=== PATIENT | female | born 1950 | race Two or more races ===

== ENCOUNTER 2016-10-31 16:55 | Inpatient (IN) | payer MEDICARE, MEDICAID ==
[~2016-10-31] VITALS: Ht 157.5 cm; Wt 80.7 kg
--- NOTE | 2016-10-31 17:05 | NUR ---
PT BIBRA FROM [facility] TO ER BED 12. HERE FOR MEDICAL EVAL PRIOR TO GEROPSYCH ADMISSION. PT IS AAO X 1. ALREADY ON A HOLD FOR GD AND DTS. PLACED ON MONITOR. STABLE VITALS AWAITING MD LEVY.
--- NOTE | 2016-10-31 17:30 | NUR ---
DR BUNCH AT BEDSIDE FOR EVAL.
[2016-10-31 17:39] LABS: BASOPHILS # (AUTO) 0.1 /CMM (0.0-0.2); BASOPHILS % (AUTO) 1.2 % (0.0-2.0); EOSINOPHILS # (AUTO) 0.1 /CMM (0.0-0.7); EOSINOPHILS % (AUTO) 1.2 % (0.0-6.0); HEMATOCRIT 48 % (33-45); HEMOGLOBIN 16.2 g/dL (11.5-14.8); LYMPHOCYTES # (AUTO) 2.8 /CMM (0.8-4.8); LYMPHOCYTES % (AUTO) 39.1 % (20.0-44.0); MEAN CORPUSCULAR HEMOGLOBIN 31 PG (26.0-33.0); MEAN CORPUSCULAR HGB CONC 34 g/dl (31.0-36.0); MEAN CORPUSCULAR VOLUME 93 fL (82-100); MONOCYTES # (AUTO) 0.5 /CMM (0.1-1.30); MONOCYTES % (AUTO) 7.2 % (2.0-12.0); NEUTROPHILS # (AUTO) 3.7 /CMM (1.8-8.9); NEUTROPHILS % (AUTO) 51.3 % (43.0-81.0); PLATELET COUNT (AUTO) 247 /CMM (150-450); RDW COEFFICIENT OF VARIATION 12.6 (11.5-15.0); RED BLOOD CELL COUNT(AUTO) 5.18 MIL/uL (4.0-5.2); WHITE BLOOD COUNT (AUTO) 7.2 K/uL (4.3-11.0)
--- NOTE | 2016-10-31 17:50 | NUR ---
PT UNABLE TO PROVIDE URINE SAMPLE AT THIS TIME.
[2016-10-31 18:01] LABS: CALCIUM, SERUM 9.6 mg/dL (8.5-10.1); CARBON DIOXIDE 28 mmol/L (21-32); CHLORIDE 102 mmol/L (98-107); CREATININE 1.3 mg/dL (0.6-1.3); GLUCOSE 168 mg/dL (74-106); POTASSIUM 4.3 mmol/L (3.5-5.1); SODIUM SERUM 139 mmol/L (136-145); UREA NITROGEN, BLOOD 32 mg/dL (7-18)
[2016-10-31 18:06] LABS: ALANINE AMINOTRANSFERASE 37 U/L (12-78); ALBUMIN 4.1 g/dL (3.4-5.0); ALCOHOL, BLOOD < 3 mg/dL (0-0); ALKALINE PHOSPHATASE 131 U/L (46-116); ASPARTATE AMINOTRANSFERASE 16 U/L (15-37); BILIRUBIN,DIRECT 0.1 mg/dL (0.0-0.2); BILIRUBIN,TOTAL 0.4 mg/dL (0.2-1.0); TOTAL PROTEIN, SERUM 7.9 g/dL (6.4-8.2)
[2016-10-31 18:08] LABS: ACETAMINOPHEN < 10 ug/ml (10-30); SALICYLATE 0.9 mg/dL (2.8-20.0)
[2016-10-31] MEDS ORDERED: LISI10TA5 PO (19:07)
[2016-10-31] MEDS ORDERED: HYDR25TA4 PO (19:07)
[2016-10-31] MEDS ORDERED: QUET200T PO (19:07)
[2016-10-31 19:20] LABS: APPEARANCE,URINE Clear (CLEAR); BILIRUBIN,URINE Negative (NEGATIVE); BLOOD, URINE Negative Ery/uL (NEGATIVE); COLOR,URINE Yellow (YELLOW); KETONES,URINE Negative (NEGATIVE); LEUKOCYTE ESTERASE ,URINE Trace (NEGATIVE); NITRITE, URINE Negative (NEGATIVE); PH,URINE 5.5 (5.0-8.0); PROTEIN,URINE Negative (NEGATIVE); UGLUCOSE Negative (NEGATIVE); UROBILINOGEN,URINE 0.2 EU/dL (0.2)
--- NOTE | 2016-10-31 19:27 | NUR ---
REPORT GIVEN TO GUNNER. PT AWAITNG TRANSFER TO FLOOR.
--- NOTE | 2016-10-31 19:30 | NUR ---
ADMITTED AN 66 Y/O FEMALE FROM [facility], ON 5250 HOLD, BASED ON HOLD, PATIENT IS CONFUSED, WONDERING INTO OTHER HOUSE AND NOT ABLE TO PROVIDE A PLAN FOR DISCHARGE. PATIENT ARRIVED VIA WHEELCHAIR AND ASSISTED BY ER STAFF. PATIENT ADMITTING DX. PSYCHOSIS AND MEDICAL DX. OF [facility]. UPON FACE TO FACE EVALUATION, PATIENT APPEARED ALERT AND ORIENTED X 1, VERBALLY RESPONSIVE, CONFUSED, DISORIENTED AND DISORGANIZED. PATIENT HAS NO SOB, NO ACUTE DISTRESS, BREATHING EVEN AND UNLABORED, NO S/S OF PAIN AND DISCOMFORT. BODY CHECK DONE. PICTURE DONE. PATIENT UNABLE TO SIGN CONSENT. NOTIFIED DR. ALARCON OF THE ADMISSION. PATIENT ATE HER SNACKS AND FINISHED SHOWER. NOTIFIED DAUGHTER BRENTON DAVIS OF THE ADMISSION. BELONGINGS INSPECTED AND PLACED ON CONTRABAND KEPT CLEAN, DRY AND COMFORTABLE. WILL CONTINUE TO MONITOR [id number] FR SAFETY.
[2016-10-31 19:39] LABS: BACTERIA,URINE Rare /HPF (None Seen); RBC,URINE NONE SEEN /HPF (0-2); SQUAMOUS EPITHELIAL CELL,UR Few /HPF (None Seen)
[2016-10-31] MEDS ORDERED: CLONIDINE HCL 0.1 MG TABLET PO PRN (20:00)
[2016-10-31] MEDS ORDERED: SERT50TA12 (20:11)
[2016-10-31 20:26] VITALS: BP 113/75
[2016-10-31 21:04] VITALS: BP 113/75
[2016-10-31] MEDS ORDERED: clonazePAM 0.5 MG TABLET PO PRN (21:30)
[2016-10-31] MEDS ORDERED: MAG HYDROX/AL HYDROX/SIMETH 30 ML UDC PO PRN (21:30)
[2016-10-31] MEDS ORDERED: MAGNESIUM HYDROXIDE 30 ML UDC PO PRN (21:30)
[2016-10-31] MEDS ORDERED: ACETAMINOPHEN 325 MG TABLET PO PRN (21:30)
[2016-11-01 08:00] VITALS: BP 114/62
[2016-11-01 08:08] LABS: CREATININE 0.9 mg/dL (0.6-1.3)
[2016-11-01] MEDS: HYDROCHLOROTHIAZIDE 25 MG TABLET PO SCH (08:44)
[2016-11-01] MEDS: LISINOPRIL (10MG) 10 MG TABLET PO SCH (08:44)
--- NOTE | 2016-11-01 09:10 | NUR ---
MRSA OF [facility] NARES TAKEN, CALLED LAB FOR PATROL SERGEANT.
--- NOTE | 2016-11-01 15:17 | NUR ---
Initial discharge plan: Pt. is a resident at [address] [place] [id number] and per daughter, Jo [phone] she is unable to return as there is no one to take care of her 02/10. Pt. needs care and Jo would like her placed in either dementia nursing facility or dementia assisted living. SW will follow up with MD and will help arrange for a safe and proper discharge.
[2016-11-01 16:14] VITALS: BP 140/100
[2016-11-01] MEDS: SERTRALINE HCL 50 MG TABLET PO SCH (17:23)
[2016-11-01] MEDS: ARIPIPRAZOLE 5 MG TABLET PO SCH (17:23)
[2016-11-01 20:17] VITALS: BP 160/82
[2016-11-01] MEDS ORDERED: DEXTROSE 50%-WATER 50 ML DISP.SYRIN IV PRN (20:30)
[2016-11-01] MEDS: ATORVASTATIN 40 MG TABLET PO SCH (21:19)
[2016-11-01] MEDS: INSULIN REGULAR, HUMAN 100 UNIT/ML 3 ML VIAL SQ PRN (21:41)
[2016-11-01] MEDS: BLOOD SUGAR DIAGNOSTIC 1 EACH STRIP IN SCH (21:42)
[2016-11-01] MEDS: TEMAZEPAM 7.5 MG CAPSULE PO PRN (21:46)
[2016-11-01 22:00] VITALS: BP 133/77
--- NOTE | 2016-11-02 06:28 | NUR ---
RN GPS NOTES PATIENT RESTING HER BED, NO ACUTE DISTRESS NOTED ,NO CHANGES IN STATUS. ALL NEEDS ATTENDED ANTICIPATED . WILL ENDORSE TO NEXT SHIFT FOR CONTINUITY CARE
[2016-11-02 06:46] LABS: THYROID STIMULATING HORMONE 3.19 uIU/mL (0.358-3.74)
[2016-11-02] MEDS: BLOOD SUGAR DIAGNOSTIC 1 EACH STRIP IN SCH ×4 (07:35→21:20)
[2016-11-02] MEDS: INSULIN REGULAR, HUMAN 100 UNIT/ML 3 ML VIAL SQ PRN ×4 (07:37→21:22)
[2016-11-02 08:00] VITALS: BP 150/99
[2016-11-02] MEDS: HYDROCHLOROTHIAZIDE 25 MG TABLET PO SCH (08:36)
[2016-11-02] MEDS: SERTRALINE HCL 50 MG TABLET PO SCH (08:36)
[2016-11-02] MEDS: LISINOPRIL (10MG) 10 MG TABLET PO SCH (08:36)
[2016-11-02] MEDS: ARIPIPRAZOLE 5 MG TABLET PO SCH (08:36)
[2016-11-02 15:47] VITALS: BP 150/92
--- NOTE | 2016-11-02 16:46 | NUR ---
Had a visit from [facility] mental health social worker Yamini Santillan [phone] who was following up on the case. LACEY notified Yamini that pt. will be discharged to a dementia facility upon discharge. Yamini wants to be notified.
[2016-11-02 20:00] VITALS: BP 152/99
[2016-11-02] MEDS: ATORVASTATIN 40 MG TABLET PO SCH (21:20)
[2016-11-02] MEDS: TEMAZEPAM 7.5 MG CAPSULE PO PRN (22:06)
--- NOTE | 2016-11-03 06:39 | NUR ---
RN GPS NOTES PATIENT RESTING HER BED, NO ACUTE DISTRESS NOTED ,NO CHANGES IN STATUS. ALL NEEDS ATTENDED ANTICIPATED . DENIES SI/HI AT THIS TIME, WILL ENDORSE TO NEXT SHIFT FOR CONTINUITY CARE
[2016-11-03 08:00] VITALS: BP 170/95
[2016-11-03] MEDS: BLOOD SUGAR DIAGNOSTIC 1 EACH STRIP IN SCH ×4 (08:01→21:56)
[2016-11-03] MEDS: INSULIN REGULAR, HUMAN 100 UNIT/ML 3 ML VIAL SQ PRN ×4 (08:03→21:58)
[2016-11-03] MEDS: SERTRALINE HCL 50 MG TABLET PO SCH (08:27)
[2016-11-03] MEDS: ARIPIPRAZOLE 5 MG TABLET PO SCH (08:27)
[2016-11-03] MEDS: HYDROCHLOROTHIAZIDE 25 MG TABLET PO SCH (08:27)
[2016-11-03] MEDS: LISINOPRIL (10MG) 10 MG TABLET PO SCH (08:27)
--- NOTE | 2016-11-03 10:51 | NUR ---
SW met with pt's other daughter, Ida [phone] who claims to have the power of tax attorney over the patient. SW asked Ida to fax the paperwork and that unless the paperwork is provided, outreach and education social worker will not be able to honor it. Pt. mentioned that the entire family does not really speak to her as she has been doing most of the work and has been wanting to take care of her mother unlike other siblings that wanted to put her in a facility. There seem to be some disagreements between family members; hence, SW asked to have paperwork for DPOA to be able to just speak with the person responsible for making decisions.
[2016-11-03] MEDS ORDERED: SITAGLIPTIN PHOSPHATE 50 MG TABLET PO SCH (15:30)
[2016-11-03 16:02] VITALS: BP 145/99
[2016-11-03] MEDS: LINAGLIPTIN 5 MG TABLET PO SCH (16:11)
[2016-11-03] MEDS: METFORMIN 500 MG TABLET PO SCH (16:11)
--- NOTE | 2016-11-03 16:28 | NUR ---
LACEY requested DPOA paperwork from daughter, Ida [phone] who emailed the form. The form has different dates on which makes it invalid. It has been notarized in 2000; however, the signing date is 2001.
--- NOTE | 2016-11-03 19:30 | NUR ---
GPS RN NOTE, RECEIVED PATIENT AWAKE AND IN BED, NO S/S OR COMPLAINTS OF PAIN AT THIS TIME. PATIENT IS DISPLAYING NO S/S OF APPARENT DISTRESS AT THIS TIME. PATIENT BREATHING IS UNLABORED WITH EQUAL RISE AND FALL OF THE CHEST. PATIENT IS ALERT AND ORIENTED X 2 ON ROOM AIR WITH A SPO2 95%. PATIENT COMPLAINT WITH MEDICATION, ANXIOUS, COOPERATIVE, GUARDED, RESPONDING TO INTERNAL STIMULI, SUSPICIOUS, AND NEEDS REORIENTATION. PATIENT DENIES SUICIDE AND HOMICIDAL IDEATIONS AT THIS TIME. PATIENT ASSISTED WITH TURNING AND REPOSITIONING Q2HR AND PRN FOR COMFORT AND CIRCULATION. PATIENT HAS NO NEEDS AT THIS TIME. PATIENT EDUCATED ON THE USE OF THE CALL MORRIS. PATIENT BED SIDE RAILS UP X2 FOR SAFETY, BED IS LOCKED AND LOW WILL CONTINUE TO MONITOR AND MAINTAIN SAFETY.
--- NOTE | 2016-11-03 19:30 | NUR ---
GPS RN NOTE, RECEIVED PATIENT AWAKE AND IN BED, NO S/S OR COMPLAINTS OF PAIN AT THIS TIME. PATIENT IS DISPLAYING NO S/S OF APPARENT DISTRESS AT THIS TIME. PATIENT BREATHING IS UNLABORED WITH EQUAL RISE AND FALL OF THE CHEST. PATIENT IS ALERT AND ORIENTED X 2 ON ROOM AIR WITH A SPO2 97%. PATIENT SELECTIVE WITH MEDICATION, ANXIOUS, COOPERATIVE, GUARDED, SUSPICIOUS, AND NEEDS REORIENTATION. PATIENT DENIES SUICIDE AND HOMICIDAL IDEATIONS AT THIS TIME. PATIENT ASSISTED WITH TURNING AND REPOSITIONING Q2HR AND PRN FOR COMFORT AND CIRCULATION. PATIENT HAS NO NEEDS AT THIS TIME. PATIENT EDUCATED ON THE USE OF THE CALL MORRIS. PATIENT BED SIDE RAILS UP X2 FOR SAFETY, BED IS LOCKED AND LOW WILL CONTINUE TO MONITOR AND MAINTAIN SAFETY.
[2016-11-03 20:00] VITALS: BP 143/93
--- NOTE | 2016-11-03 21:56 | NUR ---
GPS RN NOTE, PERFORMED ACCU CHECK ON PATIENT WITH A BLOOD SUGAR RESULT OF 180. GAVE 3 UNITS OF REGULAR INSULIN PER SLIDING SCALE. WILL CONTINUE TO MONITOR THIS PATIENT.
[2016-11-03] MEDS: ATORVASTATIN 40 MG TABLET PO SCH (21:59)
[2016-11-03] MEDS: TEMAZEPAM 7.5 MG CAPSULE PO PRN (22:03)
--- NOTE | 2016-11-03 22:03 | NUR ---
GPS RN NOTE, PATIENT HAS A COMPLAINT OF NOT BEING ABLE TO SLEEP AND WOULD LIKE A SLEEPING AID AT THIS TIME. PATIENT VITAL SIGNS ARE STABLE. GAVE RESTORIL 7.5MG PO HS ORDERED. WILL REASSESS FOR INSOMNIA AND I WILL CONTINUE TO MONITOR THIS PATIENT.
[2016-11-04] MEDS: BLOOD SUGAR DIAGNOSTIC 1 EACH STRIP IN SCH ×4 (07:24→21:36)
[2016-11-04] MEDS: INSULIN REGULAR, HUMAN 100 UNIT/ML 3 ML VIAL SQ PRN ×3 (07:26→17:40)
[2016-11-04 08:00] VITALS: BP 148/94
[2016-11-04] MEDS: LISINOPRIL (10MG) 10 MG TABLET PO SCH (08:27)
[2016-11-04] MEDS: HYDROCHLOROTHIAZIDE 25 MG TABLET PO SCH (08:27)
[2016-11-04] MEDS: METFORMIN 500 MG TABLET PO SCH ×2 (08:27→17:15)
[2016-11-04] MEDS: SERTRALINE HCL 50 MG TABLET PO SCH (08:27)
[2016-11-04] MEDS: LINAGLIPTIN 5 MG TABLET PO SCH (08:27)
[2016-11-04] MEDS: ARIPIPRAZOLE 5 MG TABLET PO SCH (09:06)
[2016-11-04 16:00] VITALS: BP 131/100
--- NOTE | 2016-11-04 17:15 | NUR ---
ADMINISTERED KLONOPIN 0.5 MG PO PRN FOR ANXIETY PER PATIENT REQUEST, V/S TAKEN BP -131/100, P-99, CONTINUED MONITORING.
[2016-11-04 20:00] VITALS: BP 129/91
[2016-11-04] MEDS: ATORVASTATIN 40 MG TABLET PO SCH (21:36)
[2016-11-04] MEDS: TEMAZEPAM 7.5 MG CAPSULE PO PRN (22:28)
--- NOTE | 2016-11-05 06:46 | NUR ---
RN GPS NOTES PATIENT RESTING HER BED, NO ACUTE DISTRESS NOTED ,NO CHANGES IN STATUS. ALL NEEDS ATTENDED ANTICIPATED . DENIES SI/HI AT THIS TIME, PT. COMPLY WITH DUE MEDS ,WILL ENDORSE TO NEXT SHIFT FOR CONTINUITY CARE
[2016-11-05] MEDS: BLOOD SUGAR DIAGNOSTIC 1 EACH STRIP IN SCH ×4 (07:33→21:49)
[2016-11-05 07:57] VITALS: BP 153/88
[2016-11-05] MEDS: INSULIN REGULAR, HUMAN 100 UNIT/ML 3 ML VIAL SQ PRN ×3 (08:00→21:51)
[2016-11-05] MEDS: HYDROCHLOROTHIAZIDE 25 MG TABLET PO SCH (08:02)
[2016-11-05] MEDS: METFORMIN 500 MG TABLET PO SCH ×2 (08:02→17:53)
[2016-11-05] MEDS: SERTRALINE HCL 50 MG TABLET PO SCH (08:03)
[2016-11-05] MEDS: LISINOPRIL (10MG) 10 MG TABLET PO SCH (08:03)
[2016-11-05] MEDS: LINAGLIPTIN 5 MG TABLET PO SCH (08:03)
[2016-11-05] MEDS: ARIPIPRAZOLE 5 MG TABLET PO SCH (08:15)
[2016-11-05 15:50] VITALS: BP 136/97
--- NOTE | 2016-11-05 19:43 | NUR ---
GPS RN NOTE: V/S HJ=197/91 P=98 R=18 T=97.9 NO SOB, NO ACUTE DISTRESS, BREATHING EVEN AND UNLABORED, NO S/S OF PAIN AND DISCOMFORT, CATAPRES GIVEN ORDERED, WILL CONTINUE TO MONITOR.
[2016-11-05 20:16] VITALS: BP 166/91
--- NOTE | 2016-11-05 20:43 | NUR ---
GPS RN NOTE: PATIENT V/S GE=514/78 P=89 R=20 T=97.8 PATIENT STABLE, CATAPRES EFFECTIVE, WILL CONTINUE TO MONITOR
[2016-11-05] MEDS: ATORVASTATIN 40 MG TABLET PO SCH (21:03)
[2016-11-06] MEDS: BLOOD SUGAR DIAGNOSTIC 1 EACH STRIP IN SCH ×4 (07:24→21:35)
[2016-11-06 08:00] VITALS: BP 139/93
[2016-11-06] MEDS: HYDROCHLOROTHIAZIDE 25 MG TABLET PO SCH (08:27)
[2016-11-06] MEDS: LINAGLIPTIN 5 MG TABLET PO SCH (08:27)
[2016-11-06] MEDS: SERTRALINE HCL 50 MG TABLET PO SCH (08:27)
[2016-11-06] MEDS: METFORMIN 500 MG TABLET PO SCH ×2 (08:27→16:32)
[2016-11-06] MEDS: LISINOPRIL (10MG) 10 MG TABLET PO SCH (08:27)
[2016-11-06] MEDS: ARIPIPRAZOLE 5 MG TABLET PO SCH (08:28)
[2016-11-06] MEDS: INSULIN REGULAR, HUMAN 100 UNIT/ML 3 ML VIAL SQ PRN ×4 (08:34→21:37)
[2016-11-06 16:00] VITALS: BP 159/78
--- NOTE | 2016-11-06 16:29 | NUR ---
LACEY spoke with pt's daughter, Ida [phone] explaining that [facility] paperwork cannot be honored. Ida said it doesn't matter now as she wants her mother to return to live with her father (pt's ex-). SW asked to have contact with him to confirm that it is okay. SW will also speak with the patient to make sure that pt. is also comfortable with that discharge plan. Ida states that she wants her mom to return back to her living situation until they find a more permanent placement, as they do not want to wick and they want to have more time to look for an appropriate facilities. LACEY suggested for pt. to be placed in a SNF first while family is looking for a terminal supervisor facility, but Ida disagrees. LACEY will follow up
--- NOTE | 2016-11-06 19:30 | NUR ---
GPS RN NOTE, RECEIVED PATIENT AWAKE AND IN BED, NO S/S OR COMPLAINTS OF PAIN AT THIS TIME. PATIENT IS DISPLAYING NO S/S OF APPARENT DISTRESS AT THIS TIME. PATIENT BREATHING IS UNLABORED WITH EQUAL RISE AND FALL OF THE CHEST. PATIENT IS ALERT AND ORIENTED X 2 ON ROOM AIR WITH A SPO2 97%. PATIENT COMPLIANT WITH MEDICATION, ANXIOUS, COOPERATIVE, GUARDED, SUSPICIOUS, AND NEEDS REORIENTATION. PATIENT DENIES SUICIDE AND HOMICIDAL IDEATIONS AT THIS TIME. PATIENT ASSISTED WITH TURNING AND REPOSITIONING Q2HR AND PRN FOR COMFORT AND CIRCULATION. PATIENT HAS NO NEEDS AT THIS TIME. PATIENT EDUCATED ON THE USE OF THE CALL MORRIS. PATIENT BED SIDE RAILS UP X2 FOR SAFETY, BED IS LOCKED AND LOW WILL CONTINUE TO MONITOR AND MAINTAIN SAFETY.
[2016-11-06 19:38] VITALS: BP 143/85
--- NOTE | 2016-11-06 21:35 | NUR ---
GPS RN NOTE, PERFORMED ACCU CHECK ON PATIENT WITH A BLOOD SUGAR RESULT OF 167. GAVE 3 UNITS OF REGULAR INSULIN PER SLIDING SCALE. WILL CONTINUE TO MONITOR THIS PATIENT.
[2016-11-06] MEDS: ATORVASTATIN 40 MG TABLET PO SCH (21:38)
[2016-11-07 08:00] VITALS: BP 141/92
[2016-11-07] MEDS: LISINOPRIL (10MG) 10 MG TABLET PO SCH (08:01)
[2016-11-07] MEDS: BLOOD SUGAR DIAGNOSTIC 1 EACH STRIP IN SCH ×4 (08:01→21:48)
[2016-11-07] MEDS: SERTRALINE HCL 50 MG TABLET PO SCH (08:02)
[2016-11-07] MEDS: LINAGLIPTIN 5 MG TABLET PO SCH (08:02)
[2016-11-07] MEDS: ARIPIPRAZOLE 5 MG TABLET PO SCH (08:02)
[2016-11-07] MEDS: METFORMIN 500 MG TABLET PO SCH ×2 (08:02→17:01)
[2016-11-07] MEDS: HYDROCHLOROTHIAZIDE 25 MG TABLET PO SCH (08:02)
[2016-11-07] MEDS: INSULIN REGULAR, HUMAN 100 UNIT/ML 3 ML VIAL SQ PRN ×3 (08:08→17:05)
[2016-11-07 16:00] VITALS: BP 142/92
[2016-11-07 20:54] VITALS: BP 133/83
[2016-11-07] MEDS: ATORVASTATIN 40 MG TABLET PO SCH (21:33)
--- NOTE | 2016-11-07 21:48 | NUR ---
GPS/RN NOTE: ACCUCHECK 127 MG/DL, NO INSULIN DUE AT THIS TIME.
[2016-11-08 08:00] VITALS: BP 144/103
[2016-11-08] MEDS: SERTRALINE HCL 50 MG TABLET PO SCH (08:17)
[2016-11-08] MEDS: METFORMIN 500 MG TABLET PO SCH ×2 (08:18→17:00)
[2016-11-08] MEDS: LINAGLIPTIN 5 MG TABLET PO SCH (08:18)
[2016-11-08] MEDS: ARIPIPRAZOLE 5 MG TABLET PO SCH (08:18)
[2016-11-08] MEDS: LISINOPRIL (10MG) 10 MG TABLET PO SCH (08:18)
[2016-11-08] MEDS: HYDROCHLOROTHIAZIDE 25 MG TABLET PO SCH (08:21)
[2016-11-08] MEDS: BLOOD SUGAR DIAGNOSTIC 1 EACH STRIP IN SCH ×4 (08:21→22:48)
[2016-11-08] MEDS: INSULIN REGULAR, HUMAN 100 UNIT/ML 3 ML VIAL SQ PRN ×2 (08:24→17:42)
--- NOTE | 2016-11-08 14:18 | NUR ---
DPOA paperwork cannot be honored as the dates on the form are not matching and that makes it invalid.
--- NOTE | 2016-11-08 14:19 | NUR ---
LACEY spoke with Jo [phone], pt's other daughter, who provided DPOA paperwork also. Jo wants the patient to be placed in a facility. Per oJ, pt. cannot be cared for at home. LACEY also received a voicemail from pt's ex- Jose, who stated that he will not be able to accept the patient back to his house and will not be able to take care of her.
--- NOTE | 2016-11-08 14:28 | NUR ---
LACEY faxed a referral to [facility] [address], [place] [address] . will follow up Addendum: 11/09/16 at 1615 by TRINA RAHMAN Per June from Admission, pt can be admitted.
[2016-11-08 16:25] VITALS: BP 126/67
[2016-11-08 20:31] VITALS: BP 145/86
[2016-11-08] MEDS: ATORVASTATIN 40 MG TABLET PO SCH (21:50)
--- NOTE | 2016-11-08 22:45 | NUR ---
GPS/CONTROL SUPERVISOR; BS 109 NO COVERAGE GIVEN.
[2016-11-09 08:00] VITALS: BP 146/91
[2016-11-09] MEDS: BLOOD SUGAR DIAGNOSTIC 1 EACH STRIP IN SCH ×4 (08:45→21:40)
[2016-11-09] MEDS: HYDROCHLOROTHIAZIDE 25 MG TABLET PO SCH (08:45)
[2016-11-09] MEDS: LISINOPRIL (10MG) 10 MG TABLET PO SCH (08:46)
[2016-11-09] MEDS: ARIPIPRAZOLE 5 MG TABLET PO SCH (08:46)
[2016-11-09] MEDS: METFORMIN 500 MG TABLET PO SCH ×2 (08:46→16:29)
[2016-11-09] MEDS: SERTRALINE HCL 50 MG TABLET PO SCH (08:46)
[2016-11-09] MEDS: LINAGLIPTIN 5 MG TABLET PO SCH (08:46)
[2016-11-09 15:52] VITALS: BP 135/88
--- NOTE | 2016-11-09 16:15 | NUR ---
SW faxed a referral to [facility] [address], [place] [address] per pt's daughter, Jo's request [phone].
--- NOTE | 2016-11-09 16:17 | NUR ---
SW received a voicemail from pt's son, Eben Back, stating pt. needs to be discharged to a facility as no one is able to take care of her and she needs continuous care.
--- NOTE | 2016-11-09 16:18 | NUR ---
LACEY spoke with Jo [phone] who agrees now with the pt's discharge to [facility] [address] [place] [address] .
[2016-11-09] MEDS: INSULIN REGULAR, HUMAN 100 UNIT/ML 3 ML VIAL SQ PRN (17:20)
[2016-11-09 20:00] VITALS: BP 148/98
[2016-11-09 20:01] VITALS: BP 148/98
[2016-11-09] MEDS: ATORVASTATIN 40 MG TABLET PO SCH (21:00)
[2016-11-10 08:00] VITALS: BP 147/93
[2016-11-10] MEDS: BLOOD SUGAR DIAGNOSTIC 1 EACH STRIP IN SCH ×2 (08:37→12:00)
[2016-11-10] MEDS: INSULIN REGULAR, HUMAN 100 UNIT/ML 3 ML VIAL SQ PRN (08:38)
[2016-11-10] MEDS: SERTRALINE HCL 50 MG TABLET PO SCH (08:43)
[2016-11-10] MEDS: METFORMIN 500 MG TABLET PO SCH (08:43)
[2016-11-10 08:44] VITALS: BP 147/93
[2016-11-10] MEDS: LISINOPRIL (10MG) 10 MG TABLET PO SCH (08:44)
[2016-11-10] MEDS: LINAGLIPTIN 5 MG TABLET PO SCH (08:44)
[2016-11-10] MEDS: HYDROCHLOROTHIAZIDE 25 MG TABLET PO SCH (08:44)
[2016-11-10] MEDS ORDERED: ARIPIPRAZOLE 5 MG TABLET PO SCH (09:00)
--- NOTE | 2016-11-10 12:08 | NUR ---
Discharge note: Pt. will discharge to [facility] [address] [place] [address] .[facility] at 1:00PM. Daughter/DPOA, Jo [phone] is notified and agreed with the discharge plan. Pt's ex , Jose, and son, Eben Back, also agreed that the patient needs to be discharged to a facility and not home and agreed with the plan also. Discharge paperwork has been signed, discharge instructions to be provided to the accepting facility. Pt. is calm, cooperative, and denies suicidal/homicidal ideations. [facility]PS social service coordinator, aYmini Santillan [phone] has been notified.
--- NOTE | 2016-11-10 13:00 | NUR ---
GPS/RN PT DISCHARGED TO [facility] [address] [place] [address] .via [facility] at 1:00PM. NO DISTRESS, SI OR HI NOTED AT THE TIME OF DISCHARGE. VSS.REPORT GIVEN TO FACILITY. DAUGHTER MADE AWARE OF DISCHARGE. BELONGINGS RETURNED.
== END 2016-11-10 13:00 | DRG 885 ==
LOC: ER 16:56 → GPS 19:06
PROVIDERS: ADMIT Psychiatry & Neurology Psychiatry; ATTEND Internal Medicine
DX: F25.9 Schizoaffective disorder, unspecified (principal); E11.65 Type 2 diabetes mellitus with hyperglycemia; I10 Essential (primary) hypertension; E78.5 Hyperlipidemia, unspecified; E66.01 Morbid (severe) obesity due to excess calories; Z73.6 Limitation of activities due to disability; F29 Unspecified psychosis not due to a substance or known physiological condition; R79.89 Other specified abnormal findings of blood chemistry; Z68.32 Body mass index [BMI] 32.0-32.9, adult
CPT/HCPCS: 36415; 80048-TC; 80061-TC; 80076-TC; 80305; 81000-TC; 82565-TC; 82746; 82962-TC; 83540-TC; 84443-TC; 85025-TC; 87081-TC; A4606; G0480; J1815; Z7610